=== PATIENT | male | born 1980 | race Asian ===

== ENCOUNTER 2017-07-31 12:32 | Emergency (ER) | payer OTHER ==
[~2017-07-31] VITALS: Ht 185.4 cm; Wt 102.1 kg
[2017-07-31 14:39] LABS: PLATELET COUNT 213 K/uL (142-355)
[2017-07-31 14:50] LABS: POTASSIUM 3.9 mmol/L (3.6-5.2)
== END 2017-07-31 17:00 | disposition home or self-care (01) ==
LOC: ED 12:32
PROVIDERS: Family Medicine
DX: K59.00 Constipation, unspecified (principal)
CPT/HCPCS: 36415; 80048; 81000; 85027; 96372; 99283; J1885